=== PATIENT | female | born 1955 | race Caucasian/White ===

== ENCOUNTER → 2016-06-09 | Outpatient (CLI) | payer MEDICARE ==
[~2016-06-09] MED LIST: ALLEGRA 180MG180 MG PO; CELEBREX 200MG200 MG PO; DYRENIUM 50MG C50 MG PO; EFFER-K20 MEQ PO; FLURAZEPAM30 MG PO; GENTEAL 0.25%-015 ML OP; HEALTH CARE AM600 M1 PO; K-DUR 2020 MEQ PO; KLONOPIN 1MG1 MG PO; LEVOXYL0.112 MG PO; MULTI VITAMINS1 TAB PO; NARDIL PO; NORCO 325 MG-51 TAB PO; OMEGA 31000 MG PO; PEPCID 20MG TAB20 MG; PEPCID 20MG TAB20 MG PO; TRIAMETERENE/HCTZ; VIIBRYD40 MG PO; ZOCOR 20MG20 MG PO
== END ==
LOC: BHSO 10:41
DX: F33.41 Major depressive disorder, recurrent, in partial remission (principal)

== ENCOUNTER → 2016-09-19 | Outpatient (CLI) | payer MEDICARE | LOC: BHSO 10:13 | DX: F33.2 Major depressive disorder, recurrent severe without psychotic features (principal) ==

== ENCOUNTER → 2017-01-19 | Outpatient (CLI) | payer MEDICARE | LOC: BHSO 09:32 | DX: F33.2 Major depressive disorder, recurrent severe without psychotic features (principal) ==

== ENCOUNTER → 2017-04-03 | Outpatient (CLI) | payer MEDICARE | LOC: BHSO 09:37 | DX: F33.41 Major depressive disorder, recurrent, in partial remission (principal) ==

== ENCOUNTER → 2017-06-03 | Outpatient (CLI) | payer MEDICARE | LOC: BHSO 10:58 | DX: F33.2 Major depressive disorder, recurrent severe without psychotic features (principal) | CPT/HCPCS: G0463 ==

== ENCOUNTER → 2017-07-15 | Outpatient (CLI) | payer MEDICARE | LOC: BHSO 10:31 | DX: F33.41 Major depressive disorder, recurrent, in partial remission (principal) | CPT/HCPCS: G0463 ==

== ENCOUNTER → 2017-10-13 | Outpatient (CLI) | payer MEDICARE | LOC: BHSO 10:30 | DX: F33.41 Major depressive disorder, recurrent, in partial remission (principal) | CPT/HCPCS: G0463 ==

== ENCOUNTER → 2018-04-06 | Outpatient (CLI) | payer MEDICARE | LOC: BHSO 10:49 | DX: F33.41 Major depressive disorder, recurrent, in partial remission (principal) | CPT/HCPCS: G0463 ==

== ENCOUNTER → 2018-09-30 | Outpatient (CLI) | payer MEDICARE | LOC: BHSO 10:46 | DX: F33.41 Major depressive disorder, recurrent, in partial remission (principal) | CPT/HCPCS: G0463 ==

== ENCOUNTER → 2019-03-30 | Outpatient (CLI) | payer MEDICARE | LOC: BHSO 10:50 | DX: F33.41 Major depressive disorder, recurrent, in partial remission (principal) | CPT/HCPCS: G0463 ==

== ENCOUNTER 2020-03-13 09:39 | Emergency (ER) | payer MEDICARE ==
[~2020-03-13] VITALS: Ht 157.5 cm; Wt 104.5 kg
[2020-03-13 09:47] VITALS: TEMP 98.2
[2020-03-13 10:31] LABS: BASO # 0.1 (0.0-0.2); BASO % 0.7 % (0.0-2.0); EOS # 0.2 (0.0-0.7); EOS % 1.6 % (0-4.0); GRAN # 7.2 (1.4-6.5); GRAN % 64.9 % (42.2-75.2); HEMOGLOBIN 15.4 g/dl (12.5-16.0); LYMPH # 2.9 (1.2-3.4); LYMPH % 25.8 % (20.0-51.0); MEAN CELL VOLUME 93 fl (80.0-100.0); MEAN CORPUSCULAR HEMOGLOBIN 31 pg (27.0-31.0); MEAN CORPUSCULAR HGB CONC 33 g/dl (33.0-37.0); MEAN PLATELET VOLUME 10.7 fl (7.4-10.4); MONO # 0.7 (0.1-0.6); MONO % 6.5 % (1.7-9.3); PLATELET COUNT 255 K/mm3 (130-400); RED BLOOD COUNT 5.05 M/mm3 (4.10-5.30); REDCELL DISTRIBUTION WIDTH-CV 13.6 % (11.5-14.5)
[2020-03-13 10:37] LABS: ALANINE AMINOTRANSFERASE 57 U/L (4-34); ALKALINE PHOSPHATASE 121 U/L (50-136); ANION GAP 15 mmol/L (7-16); AST,SGOT 57 U/L (15-37); BILIRUBIN,TOTAL 0.7 mg/dL (0.0-1.0); BLOOD UREA NITROGEN 25 mg/dL (7-17); CARBON DIOXIDE 23 mmol/L (22-30); CHLORIDE 100 mmol/L (98-107); CREATININE, serum 1.19 (0.52-1.25); GLUCOSE 239 mg/dL (74-106); POTASSIUM 4.4 mmol/L (3.4-5.0); SODIUM 138 mmol/L (137-145); TOTAL PROTEIN 8.5 gm/dL (6.4-8.2)
[2020-03-13 10:53] LABS: TROPONIN-I < 0.012 ng/mL (0.000-0.035)
[2020-03-13 12:04] LABS: COLLECTION METHOD CLEAN CATCH
[2020-03-13 12:13] LABS: MUCOUS Present /lpf; PH 5 (5-8); SQUAMOUS EPITHELIAL 0-2 /hpf; URINE APPEARANCE Hazy; URINE BACTERIA None Seen /hpf; URINE BILIRUBIN Negative (NEGATIVE); URINE BLOOD Negative (NEGATIVE); URINE COLOR Yellow; URINE GLUCOSE Negative (NEGATIVE); URINE KETONE Negative (NEGATIVE); URINE LEUKOCYTE ESTERASE Negative (NEGATIVE); URINE NITRATE Negative (NEGATIVE); URINE PROTEIN(semi-quant) Negative (NEGATIVE); URINE RBC 0-2 /hpf; URINE UROBILINOGEN Negative (NEGATIVE)
[2020-03-13] MEDS ORDERED: PRINZIDE 12.5 M1 TA1 PO (12:13)
[2020-03-13] MEDS ORDERED: NORVASC 10MG10 MG PO (12:14)
[2020-03-13] MEDS ORDERED: ZOCOR 20MG20 MG PO (12:15)
[2020-03-13] MEDS ORDERED: AMARYL1 MG PO (12:15)
[2020-03-13] MEDS ORDERED: COLESTID 1GM1 G PO (12:16)
[2020-03-13] MEDS ORDERED: PLAVIX 75MG TAB75 MG PO (12:16)
[2020-03-13] MEDS ORDERED: GLUCOPHAGE500 MG/TAB PO (12:16)
[2020-03-13] MEDS ORDERED: ZYLOPRIM 100MG100 MG PO (12:17)
[2020-03-13] MEDS ORDERED: MOBIC 7.5MG7.5 MG PO (12:17)
[2020-03-13] MEDS ORDERED: NARDIL PO (12:19)
[2020-03-13] MEDS ORDERED: NORCO 325 MG-51 TAB PO (12:19)
[2020-03-13] MEDS ORDERED: RESTORIL 1515 MG/CAP PO (12:20)
[2020-03-13] MEDS ORDERED: CALCIUM CITRAT950 MG PO (12:21)
[2020-03-13] MEDS ORDERED: NEXIUM 20MG20 MG PO (12:21)
[2020-03-13] MEDS ORDERED: VITAMIN C500 MG PO (12:22)
[2020-03-13] MEDS ORDERED: VITAMIN D3400 I1 PO (12:22)
[2020-03-13] MEDS ORDERED: MELATONIN1 MG PO (12:23)
[2020-03-13 13:34] VITALS: BP 150/75; PULSE 68
== END 2020-03-13 13:36 | disposition home or self-care (01) ==
LOC: COL.ER 09:39
PROVIDERS: Physician Assistant
DX: R53.81 Other malaise (principal); E86.0 Dehydration; F41.9 Anxiety disorder, unspecified; E03.9 Hypothyroidism, unspecified; Z20.828 Contact with and (suspected) exposure to other viral communicable diseases; Z88.8 Allergy status to other drugs, medicaments and biological substances; Z88.6 Allergy status to analgesic agent; Z79.02 Long term (current) use of antithrombotics/antiplatelets; Z79.84 Long term (current) use of oral hypoglycemic drugs
CPT/HCPCS: J7030

== ENCOUNTER → 2020-03-26 | Outpatient (CLI) | payer MEDICARE ==
[~2020-03-26] MED LIST changes: +AMARYL1 MG PO; +CALCIUM CITRAT950 MG PO; +COLESTID 1GM1 G PO; +GLUCOPHAGE500 MG/TAB PO; +MELATONIN1 MG PO; +MOBIC 7.5MG7.5 MG PO; +NEXIUM 20MG20 MG PO; +NORVASC 10MG10 MG PO; +PLAVIX 75MG TAB75 MG PO; +PRINZIDE 12.5 M1 TA1 PO; +RESTORIL 1515 MG/CAP PO; +VITAMIN C500 MG PO; +VITAMIN D3400 I1 PO; +ZYLOPRIM 100MG100 MG PO
== END ==
LOC: COL.CARD 11:03
DX: I47.1 Supraventricular tachycardia (principal)

== ENCOUNTER → 2020-03-28 | Outpatient (CLI) | payer MEDICARE | LOC: BHSO 10:36 | DX: F33.1 Major depressive disorder, recurrent, moderate (principal) | CPT/HCPCS: G0463 ==